=== PATIENT | female | born 1955 | race Caucasian/White ===

== ENCOUNTER → 2016-10-13 13:27 | Outpatient (CLI) | payer OTHER | END | disposition home or self-care (01) | LOC: D.RAD 13:27 | DX: S16.1XXA Strain of muscle, fascia and tendon at neck level, initial encounter (principal); S46.911A Strain of unspecified muscle, fascia and tendon at shoulder and upper arm level, right arm, initial encounter; S50.01XA Contusion of right elbow, initial encounter ==

== ENCOUNTER → 2017-01-12 15:07 | Outpatient (CLI) | payer OTHER | END | disposition home or self-care (01) | LOC: D.MRI 15:07 | DX: S83.422A Sprain of lateral collateral ligament of left knee, initial encounter (principal) ==

== ENCOUNTER 2018-04-14 22:28 | Outpatient (CLI) | payer OTHER | END 2018-04-14 23:59 | disposition home or self-care (01) | LOC: D.MAMMO 22:28 | DX: Z12.31 Encounter for screening mammogram for malignant neoplasm of breast (principal) ==

== ENCOUNTER → 2018-09-25 07:22 | Outpatient (CLI) | payer OTHER | END | disposition home or self-care (01) | LOC: D.US 07:22 | DX: R10.11 Right upper quadrant pain (principal) ==

== ENCOUNTER 2018-10-24 06:25 | Day surgery (SDC) | payer OTHER ==
[2018-10-23 11:30] LABS: BASOPHILS 0.5 % (0-2); HEMATOCRIT 38.6 % (36.0-48.0); HEMOGLOBIN 12.3 g/dL (12-16); IMMATURE GRANULOCYTES 0.2 % (0-5); LYMPHOCYTES 42.9 % (15-50); MCH 28.8 pg (26.0-34.0); MCHC 31.9 g/dL (31.0-37.0); MCV 90.4 fL (80.0-100.0); MEAN PLATELET VOLUME 10.2 fL (7.4-10.4); NEUTROPHILS 45.4 % (40-80); PLATELET COUNT 222 10x3/uL (130-400); RBC 4.27 10x6/uL (4.00-5.40); RDW 13.7 % (11.5-14.5)
[2018-10-23 11:44] LABS: CALC OSMOLALITY 285 mosm/kg (275-300); CALCIUM 8.3 mg/dL (8.5-10.1); CARBON DIOXIDE 33.2 mmol/L (21.0-32.0); CHLORIDE - SERUM 106 mmol/L (98-107); CREATININE - SERUM 0.7 mg/dL (0.6-1.3); GLUCOSE 73 mg/dL (74-106); POTASSIUM - SERUM 4.2 mmol/L (3.5-5.1); SODIUM 143 mmol/L (136-145); UREA NITROGEN 18 mg/dL (7-18); eGFR NON AFRICAN AMERICAN 90 mL/min (90-120)
[2018-10-23 13:12] LABS: APTT 51.1 SECONDS (22.8-39.4); INR 1.06 (0.85-1.17); PROTIME 13.3 SECONDS (11.6-15.0)
[~2018-10-24] VITALS: Ht 170.2 cm; Wt 110.7 kg
--- NOTE | ~2018-10-24 | OP ---
PATIENT NAME: ROBERTO PELAEZ MEDICAL RECORD: [id number] :55 LOCATION:D.OPS ADMISSION DATE: SURGEON: ROBERT CALIX MD DATE OF OPERATION: 10/24/2018 PREOPERATIVE DIAGNOSES: 1. Gallstones. 2. Nonalcoholic fatty liver. 3. Hyperlipidemia. 4. Thyroid disease. 5. Sleep apnea. POSTOPERATIVE DIAGNOSES: 1. Gallstones. 2. Nonalcoholic fatty liver. 3. Hyperlipidemia. 4. Thyroid disease. 5. Sleep apnea. PROCEDURE: 1. Laparoscopic cholecystectomy. 2. Lukas-Cut liver biopsy. SURGEON: Robert Calix MD INSTANT [employer] PROCESSING SUPERVISOR: Kecia Hemphill APRN REPORT OF PROCEDURE: The patient's abdomen was prepped and draped in sterile fashion. A cutdown was made on the superior aspect of the umbilicus, 0 Vicryls were placed on the fascia bilaterally and the fascia was incised with 15-blade. I then bluntly entered the peritoneal cavity and placed a 12-mm Jovani port. Under direct visualization, a 5 mm trocar was placed in the epigastrium and 2 more 5-mm trocar was placed in the right subcostal region. The gallbladder was grasped and elevated. The cystic artery and cystic duct were dissected free and these were clipped proximally and distally and ligated in standard fashion. The gallbladder was taken off the liver bed using electrocautery and placed into the right upper quadrant. Any bleeding from the liver bed was then treated with electrocautery. We irrigated out the right upper quadrant and assured there was no sign of any bleeding or bile leakage. At this point, a Lukas-Cut liver biopsy device was brought through the abdominal wall and multiple cores of the right lobe of the liver were obtained. One of these traversed through a cyst, which was present near the falciform ligament. Any bleeding from these sites was treated with electrocautery. At the conclusion of the case, there was no sign of any active bleeding. At this point, the ports and insufflation were then removed and the gallbladder was taken out through the umbilicus. The umbilical fascia was closed with interrupted 0 Vicryls times 3. The wounds were irrigated out with normal saline and infused with 10 mL of 0.25% Marcaine with epinephrine. The skin incisions were all closed with subcutaneous 5-0 Monocryl and dressed appropriately. COMPLICATIONS: None. CONDITION: Stable. ANESTHESIA: General endotracheal and local. OPERATIVE REPORT [id number] ROBERTO PELAEZ BLOOD LOSS: 30 mL. TRANSINT:[id number] Voice Confirmation ID: [id number] DOCUMENT ID: [id number] ROBERT CALIX MD CC: EMORY ALCANTARA DO [id number] DICTATION DATE: 10/24/1850 [place] MAN: 10/24/18 1203 REG [place] [id number] [place] [id number]
[~2018-10-24 06:25] MED LIST: CLARITIN 10 MG10 MG PO; CYMBALTA60 MG PO; KRILL OIL PO; LEVOTHYROXINE75 MCG PO; LYRICA150 MG PO
[2018-10-24] MEDS ORDERED: MELATONIN10 M1 PO (06:46)
[2018-10-24 06:49] VITALS: BP 123/73; Ht 170.2 cm; Wt 110.7 kg
[2018-10-24] MEDS ORDERED: HYDROCODON-ACE1 EA10 PO (09:44)
--- NOTE | 2018-10-24 15:39 | NUR ---
1410 BLEEDING FROM MIDDLE DRESSING AFTER AMBULATION & BENDING. OLD DRESSING REMOVED. USING ASEPTIC TECHNIQUE, PAD TO SITE COVERED WITH MICORPORE DRESSING. PT DRESSING. Daniel CRUZ R.N. 1420 DRESSED. AWAKE & ALERT. GIVEN DISCHARGE INFORMATION INCLUDING: RX: NORCO 10/325MG. MED REC, [facility] D/C INSTRUCTIONS, RTC APPT., & POST CHOLECYSTECTOMY D/C INSTRUCTIONS. PT VOICED UNDERSTANDING. INFORMED HOW TO USE & FILL ICE PACK. TO PRIVATE CAR PER WHEELCHAIR BY VOLUNTEER. HOME WITH MR. PELAEZ. Daniel CRUZ R.N.
== END 2018-10-24 14:20 | disposition home or self-care (01) ==
LOC: D.OPS 06:25 → D.PAN 10:15 → D.OPS 10:15
PROVIDERS: Anesthesiology; ATTEND Surgery
DX: K80.10 Calculus of gallbladder with chronic cholecystitis without obstruction (principal); K76.0 Fatty (change of) liver, not elsewhere classified; E78.5 Hyperlipidemia, unspecified; E07.9 Disorder of thyroid, unspecified; G47.30 Sleep apnea, unspecified; Z01.812 Encounter for preprocedural laboratory examination